=== PATIENT | female | born 1935 | race Caucasian/White ===

== ENCOUNTER 2017-04-07 16:55 | Inpatient (IN) | payer MEDICARE ==
[~2017-04-07] VITALS: Ht 165.1 cm; Wt 79.5 kg
[2017-04-07 20:10] LABS: BASOPHILS % (AUTO) 0.3 % (0.0-5.0); EOSINOPHILS % (AUTO) 0.2 % (0.0-8.0); LYMPHOCYTES % (AUTO) 19.7 % (21.0-51.0); MEAN CORPUSCULAR HGB CONC 34.2 g/dL (32.0-36.0); MEAN CORPUSCULAR VOLUME 96.5 fL (79-99); MONOCYTES % (AUTO) 8.5 % (3.0-13.0); NEUTROPHILS % (AUTO) 71.3 % (40.0-77.0); PLATELET COUNT (AUTO) 267 K/uL (130-400); RED BLOOD CELL COUNT(AUTO) 3.73 MIL/uL (4.00-5.50); RED CELL DISTRIBUTION WIDTH 15.1 % (11.0-15.5); WHITE BLOOD COUNT (AUTO) 8.1 K/uL (4.8-10.8)
[2017-04-07 20:26] LABS: CREATININE 2.3 mg/dL (0.5-1.5); POTASSIUM 4.8 mmol/L (3.5-5.1)
[2017-04-07 20:31] LABS: BILIRUBIN,TOTAL 0.6 mg/dL (0.2-1.0); TOTAL PROTEIN, SERUM 6.9 g/dL (6.0-8.3)
[2017-04-07 21:46] LABS: ABG HCO3 10.7 mmol/L (21.0-28.0); ABG PCO2 26 mmHg (32-45)
[2017-04-07 22:08] LABS: CREATINE KINASE MB 3.4 ng/mL (0.5-3.6)
[2017-04-07 22:51] LABS: APPEARANCE,URINE Clear (CLEAR); BILIRUBIN,URINE Negative (NEGATIVE); COLOR,URINE Yellow (YELLOW); GLUCOSE, URINE (UA) Negative (NEGATIVE); KETONES,URINE Negative (NEGATIVE); LEUKOCYTE ESTERASE ,URINE Trace (NEGATIVE); NITRATE,URINE Negative (NEGATIVE); OCCULT BLOOD,URINE Negative (NEGATIVE); PH,URINE 6.5 (5.0-8.0); PROTEIN,URINE Trace (NEGATIVE); UROBILINOGEN,URINE 0.2 mg/dL (0.2-1.0)
[2017-04-07 23:06] LABS: BACTERIA,URINE None Seen /HPF (None Seen); RBC,URINE None Seen /HPF (0-1); SQUAMOUS EPITHELIAL CELL,UR Rare /LPF (0-2); WBC,URINE 0-1 /HPF (0-1)
[2017-04-08] MEDS ORDERED: SODIUM CHLORIDE 0.9% 500ML 500 ML IV ONE (00:23)
[2017-04-08] MEDS ORDERED: SODIUM CHLORIDE 0.9% 1000ML 1,000 ML IV ONE (02:18)
[2017-04-08] MEDS ORDERED: SODIUM CHLORIDE 0.9% 1000ML 1,000 ML IV SCH (02:39)
[2017-04-08] MEDS ORDERED: ACETAMINOPHEN 325 MG TAB PO PRN ×3 (02:45→10:00)
[2017-04-08] MEDS ORDERED: LACTULOSE 20 GM/30 ML UDCUP PO PRN ×2 (02:45→10:00)
[2017-04-08] MEDS ORDERED: HYDRALAZINE HCL 20 MG/ML VIAL IV PRN ×2 (02:45→10:00)
[2017-04-08] MEDS ORDERED: IPRATROPIUM/ALBUTEROL SULFATE 3 ML SOLUTION IH PRN (02:45)
[2017-04-08] MEDS ORDERED: DOXY50SY PO (03:02)
[2017-04-08] MEDS ORDERED: CARB15DR94 OP (03:02)
[2017-04-08] MEDS ORDERED: DOCU-272 PO (03:02)
[2017-04-08] MEDS ORDERED: LISI-617 PO (03:02)
[2017-04-08] MEDS ORDERED: CALC-24 PO (03:02)
[2017-04-08] MEDS ORDERED: OMEG1CAP67 PO (03:02)
[2017-04-08] MEDS ORDERED: TRAM50TA4 PO (03:02)
[2017-04-08] MEDS ORDERED: OMEP20CA10 PO (03:02)
[2017-04-08] MEDS ORDERED: PRED1TAB PO (03:02)
[2017-04-08] MEDS ORDERED: MULT-1203 PO (03:02)
[2017-04-08] MEDS ORDERED: NAPR220T57 PO (03:02)
[2017-04-08 04:00] VITALS: BP 100/37
[2017-04-08 05:52] LABS: MEAN CORPUSCULAR HEMOGLOBIN 32.6 pg (27.0-33.0); MEAN CORPUSCULAR HGB CONC 34.1 g/dL (32.0-36.0); MEAN CORPUSCULAR VOLUME 95.4 fL (79-99); PLATELET COUNT (AUTO) 245 K/uL (130-400); RED BLOOD CELL COUNT(AUTO) 3.36 MIL/uL (4.00-5.50); RED CELL DISTRIBUTION WIDTH 14.5 % (11.0-15.5); WHITE BLOOD COUNT (AUTO) 6.8 K/uL (4.8-10.8)
[2017-04-08 06:15] LABS: CREATININE 2.1 mg/dL (0.5-1.5); POTASSIUM 4.4 mmol/L (3.5-5.1); THYROID STIMULATING HORMONE 2.6 uIU/mL (0.36-3.74)
[2017-04-08 07:00] VITALS: BP 105/49
[2017-04-08] MEDS: FAMOTIDINE 20MG TAB 20 MG TAB PO SCH ×2 (09:25→21:08)
[2017-04-08] MEDS ORDERED: ONDANSETRON HCL 4 MG/2 ML VIAL IV PRN (10:00)
[2017-04-08] MEDS ORDERED: MORPHINE SULFATE 4 MG/1ML SYG IVP PRN (10:00)
[2017-04-08] MEDS ORDERED: GUAIFENESIN-DM 200/20 MG 10 ML PO PRN (10:00)
[2017-04-08] MEDS ORDERED: NITROGLYCERIN 0.4 MG SL TAB SL PRN (10:00)
[2017-04-08] MEDS ORDERED: MAG HYDROX/AL HYDROX/SIMETH ES 30 ML SUSP UDCUP PO PRN (10:00)
[2017-04-08] MEDS ORDERED: MORPHINE SULFATE 2 MG/ML 1ML SYG IVP PRN (10:00)
[2017-04-08 11:00] VITALS: BP 110/60
[2017-04-08] MEDS: DOXYCYCLINE HYCLATE 100 MG TABLET PO SCH (11:50)
[2017-04-08] MEDS: DEXTROSE 5 % AND 0.9 % NACL 1,000 ML IV SCH (12:19)
[2017-04-08] MEDS: ARTIFICAL TEARS SOL 15 ML OU SCH ×3 (13:00→21:08)
[2017-04-08 16:00] VITALS: BP 129/52
[2017-04-08] MEDS: SODIUM BICARBONATE 650 MG TAB PO SCH (18:03)
[2017-04-08 20:00] VITALS: BP 120/51
[2017-04-08] MEDS ORDERED: TRAMADOL HCL 50 MG TABLET PO SCH (21:00)
[2017-04-08] MEDS: PREDNISONE 1 MG TAB PO SCH (21:07)
[2017-04-08] MEDS: FISH OIL 1000 MG/CAP PO SCH (21:08)
[2017-04-08] MEDS: DOCUSATE SODIUM 100 MG CAP PO SCH (21:08)
[2017-04-09] VITALS: BP 116/40
[2017-04-09] MEDS ORDERED: DEXTROSE 5 % AND 0.9 % NACL 1,000 ML IV ONE (02:21)
[2017-04-09] MEDS: DEXTROSE 5 % AND 0.9 % NACL 1,000 ML IV SCH (02:22)
[2017-04-09 04:00] VITALS: BP 116/53
[2017-04-09 08:39] VITALS: BP 111/56
[2017-04-09 09:11] LABS: CREATININE 1.6 mg/dL (0.5-1.5); POTASSIUM 3.7 mmol/L (3.5-5.1)
[2017-04-09] MEDS ORDERED: SODIUM CHLORIDE 0.9% 1000ML 1,000 ML IV SCH (09:24)
[2017-04-09] MEDS ORDERED: TRAMADOL HCL 50 MG TABLET PO PRN (09:30)
[2017-04-09 09:43] LABS: CREATININE,URINE RANDOM 37 mg/dL (30-135); SODIUM,URINE RANDOM 88 mmol/l (40-220)
[2017-04-09] MEDS ORDERED: POTASSIUM CHLORIDE 20 MEQ ERTAB PO SCH (10:00)
[2017-04-09] MEDS: SODIUM BICARBONATE 650 MG TAB PO SCH ×2 (10:56→17:43)
[2017-04-09] MEDS: FISH OIL 1000 MG/CAP PO SCH ×2 (10:56→21:00)
[2017-04-09] MEDS: DOXYCYCLINE HYCLATE 100 MG TABLET PO SCH (10:57)
[2017-04-09] MEDS: DOCUSATE SODIUM 100 MG CAP PO SCH ×2 (10:58→21:00)
[2017-04-09] MEDS: FAMOTIDINE 20MG TAB 20 MG TAB PO SCH ×2 (10:58→21:00)
[2017-04-09] MEDS: MULTIVITAMIN TABLET PO SCH (10:58)
[2017-04-09] MEDS: CALCIUM 600 + VITAMIN D 400 TABLET PO SCH (10:58)
[2017-04-09] MEDS: ENOXAPARIN SODIUM 30 MG/0.3 ML SQ SCH (10:59)
[2017-04-09] MEDS: ARTIFICAL TEARS SOL 15 ML OU SCH ×4 (11:02→21:01)
[2017-04-09] MEDS: PREDNISONE 1 MG TAB PO SCH ×2 (11:08→21:00)
[2017-04-09 12:04] VITALS: BP 131/60
[2017-04-09] MEDS ORDERED: PHARMACY COMMUNICATION MISC SCH (16:30)
[2017-04-09 16:42] VITALS: BP 126/65
[2017-04-09] MEDS ORDERED: TROLAMINE SALICYLATE CREAM 85 GM TUBE TP PRN (17:15)
[2017-04-09 20:00] VITALS: BP 125/68
[2017-04-09] MEDS: TROLAMINE SALICYLATE CREAM 85 GM TUBE TP SCH (21:01)
[2017-04-10] VITALS: BP 120/59
[2017-04-10 04:00] VITALS: BP 119/59
[2017-04-10 05:31] LABS: HEMATOCRIT 31.7 % (36-48); MEAN CORPUSCULAR HEMOGLOBIN 32.1 pg (27.0-33.0); MEAN CORPUSCULAR HGB CONC 33.7 g/dL (32.0-36.0); MEAN CORPUSCULAR VOLUME 95.1 fL (79-99); PLATELET COUNT (AUTO) 242 K/uL (130-400); RED BLOOD CELL COUNT(AUTO) 3.33 MIL/uL (4.00-5.50); RED CELL DISTRIBUTION WIDTH 15.1 % (11.0-15.5); WHITE BLOOD COUNT (AUTO) 6.5 K/uL (4.8-10.8)
[2017-04-10 05:41] LABS: BAND NEUTROPHILS % (MANUAL) 2 % (0-2); LYMPHOCYTES % (MANUAL) 19 % (22-44); MAN.DIFF COMMENT-IMPRESSION MANUAL DIFFERENTIAL; MONOCYTES % (MANUAL) 6 % (2-9); PLATELET MORPHOLOGY COMMENT ADEQUATE; SEGMENTED NEUTROPHILS % 73 % (40-70)
[2017-04-10 05:42] LABS: CREATININE 1.5 mg/dL (0.5-1.5); POTASSIUM 4.5 mmol/L (3.5-5.1)
[2017-04-10 08:00] VITALS: BP 91/60
[2017-04-10] MEDS: CALCIUM 600 + VITAMIN D 400 TABLET PO SCH (10:02)
[2017-04-10] MEDS: SODIUM BICARBONATE 650 MG TAB PO SCH ×2 (10:05→17:23)
[2017-04-10] MEDS: DOCUSATE SODIUM 100 MG CAP PO SCH (10:05)
[2017-04-10] MEDS: FISH OIL 1000 MG/CAP PO SCH (10:05)
[2017-04-10] MEDS: PREDNISONE 1 MG TAB PO SCH (10:05)
[2017-04-10] MEDS: MULTIVITAMIN TABLET PO SCH (10:06)
[2017-04-10] MEDS: FAMOTIDINE 20MG TAB 20 MG TAB PO SCH (10:06)
[2017-04-10] MEDS: ARTIFICAL TEARS SOL 15 ML OU SCH ×3 (10:06→17:22)
[2017-04-10] MEDS: TROLAMINE SALICYLATE CREAM 85 GM TUBE TP SCH ×3 (10:07→17:23)
[2017-04-10] MEDS: ENOXAPARIN SODIUM 30 MG/0.3 ML SQ SCH (10:07)
[2017-04-10] MEDS: DOXYCYCLINE HYCLATE 100 MG TABLET PO SCH (10:08)
[2017-04-10 12:00] VITALS: BP 119/68
[2017-04-10 16:00] VITALS: BP 111/48
== END 2017-04-10 18:00 | DRG 683 ==
LOC: EDH 16:55 → EDHIP 23:30 → OBSVTOIN 23:30 → 4CH 04-08 02:22 → UNDODISOB 04-08 11:50
PROVIDERS: ADMIT Internal Medicine; ATTEND Internal Medicine
DX: N17.9 Acute kidney failure, unspecified (principal); E87.2 Acidosis; E86.0 Dehydration; R63.0 Anorexia; W18.30XA Fall on same level, unspecified, initial encounter; I12.9 Hypertensive chronic kidney disease with stage 1 through stage 4 chronic kidney disease, or unspecified chronic kidney disease; M19.90 Unspecified osteoarthritis, unspecified site; N18.9 Chronic kidney disease, unspecified; R29.6 Repeated falls; R62.7 Adult failure to thrive; M25.40 Effusion, unspecified joint; M81.0 Age-related osteoporosis without current pathological fracture; E86.1 Hypovolemia; Z96.651 Presence of right artificial knee joint; Z90.49 Acquired absence of other specified parts of digestive tract; Y92.009 Unspecified place in unspecified non-institutional (private) residence as the place of occurrence of the external cause; Y93.89 Activity, other specified; Y99.8 Other external cause status; Z79.899 Other long term (current) drug therapy
CPT/HCPCS: 36415; 36600; 72110; 73562; 76770; 80048; 80053; 81001; 82009; 82550; 82553; 82570; 82803; 84300; 84443; 84484; 85025; 85027; 93005; 94664; 97039; J1650; J7030; J7040; J7042; J7512